=== PATIENT | male | born 1955 | race Caucasian/White ===

== ENCOUNTER → 2022-12-04 09:42 | Outpatient (BNVA) | payer MEDICARE, SELFPAY | PROVIDERS: Referring Provider Dermatology; Visit Provider Student in an Organized Health Care Education/Training Program | DX: M17.11 Unilateral primary osteoarthritis, right knee; Z98.890 Other specified postprocedural states; G43.909 Migraine, unspecified, not intractable, without status migrainosus | CPT/HCPCS: 20610; 73560; 73565; 97760; 99204; J3301; L1852 ==

== ENCOUNTER → 2022-12-04 09:49 | Outpatient (BNVA) | payer MEDICARE, SELFPAY | PROVIDERS: Referring Provider Dermatology; Visit Provider Student in an Organized Health Care Education/Training Program | DX: M17.11 Unilateral primary osteoarthritis, right knee; Z98.890 Other specified postprocedural states; G43.909 Migraine, unspecified, not intractable, without status migrainosus | CPT/HCPCS: 73560; 73565 ==

== ENCOUNTER → 2023-04-05 08:43 | Outpatient (BNVA) | payer MEDICARE, SELFPAY | PROVIDERS: PCP Family Medicine; Visit Provider Student in an Organized Health Care Education/Training Program | DX: M17.11 Unilateral primary osteoarthritis, right knee | CPT/HCPCS: 20610; 99213; J3301 ==

== ENCOUNTER → 2023-08-29 14:15 | Outpatient (BNVA) | payer MEDICARE, SELFPAY | PROVIDERS: PCP Family Medicine; Visit Provider Physician Assistant | DX: M17.11 Unilateral primary osteoarthritis, right knee (principal); Z01.818 Encounter for other preprocedural examination | CPT/HCPCS: 36415; 73560; 73565; 80053; 85025; 99214 ==

== ENCOUNTER → 2023-08-30 09:55 | Outpatient (BNVA) | payer MEDICARE, SELFPAY | PROVIDERS: PCP Family Medicine; Visit Provider Student in an Organized Health Care Education/Training Program | DX: Z01.818 Encounter for other preprocedural examination (principal) | CPT/HCPCS: 81000 ==

== ENCOUNTER → 2023-09-06 10:47 | Outpatient (BNVA) | payer MEDICARE, SELFPAY | PROVIDERS: PCP Family Medicine; Visit Provider Family Medicine | DX: Z01.818 Encounter for other preprocedural examination (principal) | CPT/HCPCS: 81003; 93005 ==

== ENCOUNTER 2023-09-09 12:39 | Outpatient (CLI) | payer MEDICARE, SELFPAY ==
--- NOTE | 2023-09-09 13:00 | CT_ITS ---
WS: [id number] CT RIGHT knee, noncontrast HISTORY: M17.11 - Unilateral primary osteoarthritis, right knee TECHNIQUE: Protocol for [facility] total knee replacement has been obtained. This includes axial imaging th rough the RIGHT hip, RIGHT knee and RIGHT ankle. DLP: 931.63 mGy.cm COMPARISON: Radiograph 08/29/2023 Pelvis: Mild narrowing at the SI joints. No osseous destruction. No free fluid. RIGHT knee: Moderate narrowing of the medial compartment. Cystic change in the fibular head and also along the tibial plateau. Osteophytic ridging. Moderate suprapatellar effusion. No destructive bone l esions. Negative RIGHT ankle. CT/CT knee RT [facility] [id number] IMPRESSION: CT imaging provided for [facility] robotic total knee replacement.
== END 2023-09-09 12:40 | disposition home or self-care (01) ==
LOC: RAD 12:39
PROVIDERS: PCP Family Medicine; Visit Provider Physician Assistant
DX: M17.11 Unilateral primary osteoarthritis, right knee (principal); M25.461 Effusion, right knee
CPT/HCPCS: 73700

== ENCOUNTER 2023-09-16 14:29 | Observation (INO) | payer MEDICARE, SELFPAY ==
[2023-09-16] VITALS (15 sets, daily range): BP systolic 106–170; BP diastolic 63–95; PULSE 71–89; RESP 15–20; TEMP 36.4–36.8; O2SAT 92–97; BMI 34.7; BMI 37.5
[2023-09-16] MEDS: lactated ringers 500 ML IV (10:02)
[2023-09-16] MEDS: scopolamine 1.5 Patch 1 PATCH TRANSDERMA (10:03)
[2023-09-16] MEDS: ketorolac 30 mg/mL INJ IVP (10:04)
[2023-09-16] MEDS: acetaminophen 1,000 MG/100 ML PIGGYBACK 400 MG IV ×2 (10:04→17:27)
--- NOTE | 2023-09-16 10:35 | ANES.PREANE2 ---
Pre-Anesthetic Assessment Height/Weight: Height 1.75 m Weight 106.594 kg Temp Pulse Resp BP Pulse Ox O2 Del Method 98.0 F 78 16 160/95 97 Room Air 09/16/23 09:16 09/16/23 09:16 09/16/23 09:16 09/16/23 09:16 09/16/23 09:16 09/16/23 09:18 Operation Date: 09/16/23 10:55 Proposed Procedures p Eddie Robot Total Knee Arthroplasty(Right) - Tyrel Ramirez DO Last intake: Intake Last Liquid Date 09/15/23 Last Liquid Time 19:00 Last Solid Date 09/15/23 Last Solid Time 19:00 Social No tobacco Exam alert, oriented x 3, clear to auscultation bilaterally and regular rate & rhythm Airway Submandibular: within normal limits Cervical ROM: within normal limits Mallampati: Class I Pulmonary None reported CV/HEM Hypertension None reported Hepatic None reported GI None reported Metabolic None reported Anesthetic Plan ASA status: 2 Anesthesia: Eval. for regional block Other: sab risks discussed . Adductor canal block for post op pain control Medications/Allergies Home Medications Medication Instructions Recorded Confirmed Last Taken Type ascorbic acid (vitamin C) 1,000 mg 1 g PO DAILY 12/04/22 09/13/23 08/30/23 History capsule cholecalciferol (vitamin D3) 10 10 mcg PO DAILY 12/04/22 09/13/23 08/30/23 History mcg (400 unit) capsule docosahexaenoic acid (dha)-epa 120 1 cap PO DAILY 12/04/22 09/13/23 08/30/23 History mg-180 mg capsule (Fish Oil) gabapentin 600 mg tablet 600 mg PO DAILY 12/04/22 09/13/23 09/15/23 History ibuprofen 200 mg capsule 200 mg PO Q6H PRN Pain 12/04/22 09/13/23 Unknown History irbesartan 150 mg tablet 150 mg PO DAILY 12/04/22 09/13/23 09/15/23 History magnesium chloride 64 mg 64 mg PO DAILY 12/04/22 09/13/23 09/15/23 History (magnesium chloride) tablet multivitamin 1 tab PO DAILY 12/04/22 09/13/23 08/30/23 History battery tester field brace #1 ea 12/04/22 09/06/23 Unknown Rx zinc gluconate 100 mg tablet 100 mg PO DAILY 08/29/23 09/13/23 08/30/23 History tramadol 50 mg tablet 50 mg PO Q6H PRN pain 5 days #20 09/06/23 09/16/23 09/15/23 Rx tabs sulfamethoxazole 800 1 tab PO BID 5 days #10 tabs 09/09/23 09/13/23 09/13/23 Rx mg-trimethoprim 160 mg tablet (Bactrim DS) Allergies Allergy/AdvReac Type Severity Reaction Status Date / Time No Known Allergies Allergy Verified 09/06/23 11:02 [facility] Anesthesia Social History Smoking and tobacco/nicotine status: never used tobacco/nicotine Alcohol intake: never Data Anesthesia Cardiac Studies: No Data to Display
[2023-09-16] MEDS: midazolam 1 mg/mL INJ 2 mL 2 MG IVP (10:36)
[2023-09-16] MEDS: sodium chloride 0.9% 1,000 ML 30 ML IV (10:50)
--- NOTE | 2023-09-16 12:03 | W.PM.OPSUD ---
Surgery/Procedure H&P Update DATE OF PROCEDURE: September 16, 2023 DATE H&P PERFORMED: 08/29/23 H&P UPDATE INFORMATION: I have reviewed H&P completed within last 30 days, I have examined patient prior to procedure and No changes to prior documentation CHANGES TO PREVIOUS DOCUMENTATION: Talk with Dr Marte patient had a nonpathologic UA has no urinary symptoms has been empirically treated. He has negative esterases and negative nitrites. No new urinary symptoms at this point time stable and cleared from the preoperative clearance team to proceed with the OR today. All questions been answered at this time proceed with the OR for right knee removal of hardware and right total knee arthroplasty Eddie robotic assisted. PREOP DIAGNOSIS: Right knee painful hardware, right knee degenerative joint disease PRIMARY INDICATION FOR PROCEDURE: Right knee painful hardware, right knee degenerative joint disease PLANNED PROCEDURE: Operation Date: 09/16/23 10:55 Proposed Procedures p Eddie Robot Total Knee Arthroplasty(Right) - Tyrel Ramriez DO
[2023-09-16] MEDS: ceFAZolin 2,000 MG in sodium chloride 0.9% (plus) 50 ML 100 MG IV ×2 (12:06→20:11)
[2023-09-16] MEDS: tranexamic acid 1,000 mg/10mL SDV 1000 MG IV (12:30)
--- NOTE | 2023-09-16 12:35 | ANES.PROC ---
Anesthesia Procedures Procedure/Date: 09/16/23 Nerve Block ^: Nerve Block 1: Main Anesthesia: spinal anesthesia block Time Out Performed: Yes Consent: requested by attending/covering physician and from patient Nerve block location: adductor canal Anesthesia monitors applied: pulse oximetry, EKG, BP cuff and oxygen Nerve block position: supine Anesthetic Used: ropivicaine 0.5% Amount of anesthesia used (mL): 30 Ultrasound used to: visualize and ID femerol nerve Nerve Stimulator Used?: No Interscalene/Femoral BLK: 4 stimuplex 21 g needle used for position and inplane approach Injection: neg aspiration of heme Patient Tolerated Procedure: well and no complications Complications: none
[2023-09-16] MEDS: EPINEPHrine 1 mg/mL INJ XX (13:08)
[2023-09-16] MEDS: ketorolac 30 mg/mL INJ XX (13:08)
[2023-09-16] MEDS: tranexamic acid 1,000 mg/10mL SDV 1000 MG XX (13:08)
[2023-09-16] MEDS: ROPivacaine 0.2% Premix 100 mL 200 MG INTRA-ARTI (13:08)
--- NOTE | 2023-09-16 15:03 | P.OP_ITS ---
Operative Report Date of procedure: September 16, 2023 Surgeon: Tyrel Ramirez DO [employer] Supervisor: Dutch Ramirez PA-C: PA was necessary for assistance in this case with leg positioning retraction and protection of neurovascular structures as well as assistance in implantation wound closure and dressing application. Procedure: Preoperative diagnosis: Right knee degenerative joint disease Right knee orthopedic hardware Post-op diagnosis: Same Procedure done: Right total knee arthroplasty, cemented?robotic assisted Eddie Implants: Hailey triathlon size 6 femur CR cemented?Right Hailey triathlon size? 5 tibia universal baseplate cemented [place] triathlon asymmetric patella size 35 mm Hailey triathlon polyethylene 9mm Surgeon: Tyrel Ramirez DO Estimated blood?loss: 40 mL Tourniquet 73minutes IV fluids: 1200 mL Urine output: 150 mL Complications: None Condition: stable Disposition: floor Brief History: Patient is a 68-year-old female with with chronic?Right knee degenerative joint disease.? Patient has been worked up in the outpatient setting in the orthopedic office at this point time through shared decision making given? [id number] arthritis as well as failed conservative treatment, and pt would?like to proceed with a?Right total knee arthroplasty.? We talked about removal of orthopedic hardware that it has been in the knee given it could potentially be in the way of the hardware will consent for removal of orthopedic hardware unless ends up not being necessary. Through shared decision making elected to proceed with surgical intervention for?Right total knee arthroplasty.? We talked about continued conservative treatment and surgical intervention as far as the risk benefits complications alternatives surgical and nonsurgical treatment options.? At this point time understanding patient risks with surgery he agrees to proceed with surgical intervention.? Once again? risk with surgery include but are not?limited to make it better make it worse blood clot, heart attack, stroke, on the table, infection, injury to nerves or vessels, persistent pain, arthrofibrosis, implant failure.? Understanding these risks patient agrees to proceed with surgical intervention consent was obtained in the office.? All questions answered. Procedure: Patient was seen and evaluated in the preoperative holding area.? Consent was reviewed and signed with patient with plan for?Right total knee arthroplasty.? All questions answered.? Correct extremity marked.? Patient seen and evaluated by the anesthesia department and once cleared for surgery was taken back to the operative suite.? Patient was placed into a supine position on the OR table.? All bony prominences were well-padded.? Patient was appropriately secured to the bed.? Patient underwent anesthesia per the anesthesia department.? Patient received spinal anesthesia and? Drummond catheter was placed.? A nonsterile tourniquet was applied to the?Right thigh.? At this point in time a final timeout performed.? Patient received appropriate preoperative antibiotics and TXA. Next the?Right?lower extremity was then prepped and draped in standard orthopedic fashion. Esmarch tourniquet was used exsanguinate the?Right?lower extremity.? Tourniquet was insufflated to 250 mmHg. A standard anterior incision was made over midline of the knee.? Sharp scalpel excision through skin and subcutaneous tissue full-thickness skin flaps were made.? Fascia was elevated off of the extensor retinaculum was stable with medial parapatellar arthrotomy was then made.? The performed standard sequential releases..? Immediately on entry into the joint patient was found to have severe eburnated bone and tricompartmental arthritic changes noted.? With significant osteophyte formation.? Next the the patella was then stuffed and the knee was then flexed.?? At this point in time I then subsequently began exploration of the hardware which was 2 mac on the lateral aspect of the knee. I stuffed the patella laterally The knee in extension and then utilize digital dissection as well as Bovie electrocautery. I then utilized a small osteotome to try and scrape the lateral femoral condyle on the lateral aspect care not to injure the collateral ligament and spent roughly 15 minutes looking for the hardware and this was not blatantly visible and appeared to have some overgrowth of significant dense scar tissue/bone as result reviewing of the images by plan to proceed with the case and we inspected drilling my log holes for the femur if this will interfere with the mac. This point I made the decision I did not want to injure patient or cause more trauma necessary as these were not giving him any pain and his pain all stemmed immediately from his arthritis. Shane was placed superiorly around the anterior aspect of the femur this was freed of synovium and I subsequently then placed by 2 femur pins to establish my femur arrays for the Eddie robot.? These were then placed bicortically and? femur array was then appropriately secured with appropriate visualization.? Next attention was turned towards the tibial rays.? These were then drilled sequentially bicortically in parallel fashion and intraincisional.? I then placed my guide as well as my tibial array on in place.? This was appropriately secured and had excellent visualization with the [employer] robot.? Next the tibial checkpoint as well as femur checkpoint were then placed.? At this point time I then subsequently established my head center as well as my medial?lateral malleoli as well as my checkpoints.? Next utilizing standard [employer] technology I then mapped out the appropriate points and confirmation points around the femur as well as the tibia in standard fashion.? Once this was then done I then removed all osteophytes in preparation for dynamic testing.? All osteophytes were removed as well as I removed the ACL and the PCL was excised due to its significant tearing and degeneration noted.? At this point time the knee was brought into full extension and we performed our standard evaluation of our gap balancing stressing his?ligaments and extension as well as flexion appropriate adjustments were made to have appropriate gap balancing in both flexion and extension.? This plan for final counts.? We get a preoperative plan evaluating our implants which was a size 6 femur and a size 5 tibia.? Next we brought in the Eddie robot and sequentially made our femur cuts.? All excess bony cuts were then removed.? Finally we made our tibial cut.? Once this was done a standard PCL retractor was then placed into this position I excised the medial and?lateral meniscus.? The tibial cut was then subsequently removed all excess bony debris was removed.? I then utilized a?lamina rope silica machine operator and remove the posterior osteophytes.? At this point time sized the tibia and confirmed this was a size 5.? I utilized our blunt probe to establish rotation of tibial implant.? Once this was done I then placed my tibia size 5 trial in appropriate position and then subsequently placed tibial pins to hold this into place placed a size 9 mm poly as well as a size 6 femur which was appropriately impacted in place knee was then subsequently brought into extension. Trials were then assessed,? this was stable with varus valgus stress in extension as well as had symmetrical translation when brought into flexion demonstrating symmetrical gaps. I had excellent balance gaps in flexion and extension with varus and valgus stresses.? At this point I was satisfied with these implants these were then verified and opened on the back table size 5 tibia, size 6 femur,? size 9 mm polythickness.? We did confirm appropriate gap balancing and stresses as well as alignment utilizingHaim Morgan and were satisfied with this plan.? ?At this point time with my trials in place I then towel clip the patella everted this made appropriate measurements subsequently utilizing freehand technique performed by patellar resurfacing this was confirmed to be appropriate resection and subsequently sized to be a 35 mm asymmetric.? My drill peg guides were then clamped and appropriate position and appropriate position in the patella for appropriate tracking and parallel with the joint.? Pegs were drilled trial implant was placed and the knee was then subsequently ranged and found to have excellent patellar tracking.? Femur pegs were then drilled.? It was noted that the femur post laterally would not interfere with the mac and as result we elected to continue to proceed with implantation. All checkpoints as well as guidepins and arrays were removed and appropriate counts made.?Satisfied with our tibial placement rotation I then utilized the keel punch and prepped the tibia.? At this point time all of our trial implants were removed.? The wound bed? was thoroughly irrigated and dried and prepped for cementation.? Cement was mixed on the back table.? Once cement was ready this was then covered onto the tibia and the tibial baseplate was then impacted and all excess cement was removed.? Next the polyethylene was then impacted into place on the tibial baseplate.? Next cement was placed onto the femur as well as under the femur implants and impacted in to place and all excess cement was extruded and removed.? Knee was taken into full extension? to clear all excess cement was removed.? Warm saline was placed over the joint.? I then towel clip patella and dried for cementation. cemented the patella into place.? This was all clamped and the cement was allowed to cure.? Thorough irrigation performed with pulse?lavage.? I then placed my periarticular injection while the cement was curing.? Once cured the knee was taken through range of motion and had excellent stability and gaps were balanced in flexion and extension.? Tourniquet was then deflated. hemostasis satisfactory with electrocautery.? Next I then subsequently closed the capsule with Ethibond suture as well as a running strata fix suture.? Knee was then taken through range of motion 30 times.? Next the skin was then closed in?layered fashion of running stratifix sutures of deep and subcutenous tissue and skin.? ?closed in flexion and Prineo glue was then placed over the incision this allowed to cure.? Incision was covered with Silverlon, with ABDs soft roll and Tyler wrap.? Patient was then awakened from anesthesia and taken to PACU in stable condition. Disposition: Patient taken to PACU in stable condition will be admitted to the floor for pain control PT/OT weight-bear as tolerated?Right?lower extremity dressing changes as needed, DVT prophylaxis. Pain control. Patient will receive appropriate postoperative antibiotics. patient will be seen today by the internal medicine team for medical management.? Patient will follow up with the office in 2 weeks.? Patient understands agrees with current plan.? All questions answered.
--- NOTE | 2023-09-16 15:07 | XRR_ITS ---
PROCEDURE INFORMATION: Exam: XR Right Knee Exam date and time: 09/16/2023 3:20 PM Age: 68 years old Clinical indication: Device placement; Joint replacement hardware; Prior surgery; Surgery date: Post-operative (0-2 days); Surgery type: RT knee; Additional info: Status post right tka TECHNIQUE: Imaging protocol: Radiologic exam of the right knee. Views: 1 or 2 views. COMPARISON: CT knee RT [facility] [id number] 09/09/2023 1:01 PM FINDINGS: Bones/joints: Intact well-aligned total knee arthroplasty. No periprosthetic fracture. Soft tissues: Expected postoperative soft tissue gas. XR/XR knee RT 1-2V [id number] IMPRESSION: Intact well-aligned total knee arthroplasty.
--- NOTE | 2023-09-16 15:13 | P.BOP_ITS ---
Date of Procedure: [September 16, 2023] Surgeon: [Dr. Ramirez DO] [employer] Demonstrator(s): [Dutch Ramirez PA-C] Procedure(s) performed: [Right knee total arthroplasty with Eddie robotic assist] Findings of the procedure(s): [Right knee degenerative joint disease] Estimated blood loss: [40 mL] Specimen(s) removed: [femur, patella and tibia bone shavings] Post-operative diagnosis: [Right knee degenerative joint disease]
--- NOTE | 2023-09-16 15:16 | PM.PACU ---
PACU note Narrative: Patient is a 68-year-old male just underwent a right total knee arthroplasty. Pt transferred to PACU in stable condition. Dressing is dry. pt is awake and alert. Distal pulses are palpable toes are warm and well-perfused. Cap refill is normal and under 2 seconds. Pain is controlled. Unable to perform any further motor or sensation assessment to the leg due to residual spinal anesthetic. Exam: awake Disposition: admitted
[2023-09-16] MEDS: lactated ringers 1,000 ML 100 ML IV (16:09)
[2023-09-16] MEDS: cetylpyridinium Lozenge 1 EACH MUCOUS MEM (16:09)
--- NOTE | 2023-09-16 17:18 | PC.PT ---
Spoke with nursing at 1617. Patient had not regain full feeling and function to BLE following surgery. Advised to hold on completing evaluation until later.
--- NOTE | 2023-09-16 17:21 | P.CONIM_ITS ---
Providers/Reason For Consult Consulting Physician/Specialty*: Dr. Sosa/internal medicine Reason for Consult*: Medical comorbidities Attending Physician: Tyrel Ramirez DO Primary Care Provider: Thompson Mccallum History of Present Illness History of Present Illness Fox Clark is a 68 year old male with past medical history of hypertension underwent noted to right total knee arthroplasty today with orthopedic team. Medicine is consulted for high blood pressure. As per patient he takes irbesartan at home for high blood pressure. Does not check his blood pressures at home. Denies any chest pain or difficulty in breathing on walking around. Review of Systems General: Reports: 10 or more systems reviewed and unremarkable except in HPI and below Const: Denies: fever(s), chills, body aches, change in appetite, change in weight, malaise, night sweats, diaphoresis, change in sleep pattern, daytime sleepiness or snoring Eyes: Denies: change in vision, blurry vision, photophobia, eye discomfort or eye discharge ENMT: Denies: throat pain, enlarged tonsils, hoarseness, mouth pain, oral sores, dry mouth, tinnitus, nasal congestion or post nasal drip Card: Denies: chest pain, palpitations, irregular heart rhythm, edema, swelling of feet/ankles, lightheadedness, syncope, pre-syncope, dyspnea on exertion, orthopnea, leg pain with exertion or acrocyanosis Resp: Denies: dyspnea, productive cough, non-productive cough, wheezing, stridor, pain on inspiration, change in phlegm color, hemoptysis or chest congestion GI: Denies: abdominal pain, nausea, vomiting, hematemesis, coffee ground emesis, dysphagia, heartburn, diarrhea, constipation, bloating, GI cramping, change in bowel habits, pain on defecation, hematochezia or melena : Denies: flank pain, difficulty urinating, dysuria, urinary frequency, urinary urgency, urinary hesitancy, urinary dribbling, difficulty starting urination, change in urine stream, nocturia or hematuria Musc: Denies: neck pain, back pain, extremity pain, joint pain, joint swelling, joint redness, joint stiffness or limited range of motion Neuro: Denies: headache(s), numbness in extremities, weakness in extremities, sensory changes, lack of coordination, difficulty walking, frequent falls, dizziness, vertigo, confusion, Slurred speech present, difficulty communicating thoughts or seizure-like activity Psych: Denies: anxiety, depression, mood swings, panic attacks, hopelessness or irritability Endo: Denies: polyuria, polydipsia, tired all the time, cold intolerance, excessive sweating, flushing or heat intolerance Donis/Lymph: Denies: easy bruising or easy bleeding All/Imm: Denies: tongue swelling, facial swelling or acute wheezing Medications/Allergies Home Medications Medication Instructions Recorded Confirmed Last Taken Type ascorbic acid (vitamin C) 1,000 mg 1 g PO DAILY 12/04/22 09/13/23 08/30/23 History capsule cholecalciferol (vitamin D3) 10 10 mcg PO DAILY 12/04/22 09/13/23 08/30/23 History mcg (400 unit) capsule docosahexaenoic acid (dha)-epa 120 1 cap PO DAILY 12/04/22 09/13/23 08/30/23 History mg-180 mg capsule (Fish Oil) gabapentin 600 mg tablet 600 mg PO DAILY 12/04/22 09/13/23 09/15/23 History ibuprofen 200 mg capsule 200 mg PO Q6H PRN Pain 12/04/22 09/13/23 Unknown History irbesartan 150 mg tablet 150 mg PO DAILY 12/04/22 09/13/23 09/15/23 History magnesium chloride 64 mg 64 mg PO DAILY 12/04/22 09/13/23 09/15/23 History (magnesium chloride) tablet multivitamin 1 tab PO DAILY 12/04/22 09/13/23 08/30/23 History 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 ea 12/04/22 09/06/23 Unknown Rx zinc gluconate 100 mg tablet 100 mg PO DAILY 08/29/23 09/13/23 08/30/23 History tramadol 50 mg tablet 50 mg PO Q6H PRN pain 5 days #20 09/06/23 09/16/23 09/15/23 Rx tabs sulfamethoxazole 800 1 tab PO BID 5 days #10 tabs 09/09/23 09/13/23 09/13/23 Rx mg-trimethoprim 160 mg tablet (Bactrim DS) Allergies Allergy/AdvReac Type Severity Reaction Status Date / Time No Known Allergies Allergy Verified 09/06/23 11:02 Current Medications Generic Name Dose Route Start Last Admin Trade Name Freq PRN Reason Stop Dose Admin Lactated Ringer's 1,000 mls @ 100 mls/hr 09/16/23 15:35 09/16/23 16:09 Lactated Ringers IV 100 mls/hr .Q10H ASHLEY Administration PFSH Acute PFSH: Medical History (Updated 09/16/23 @ 17:23 by Zackary Sosa MD) Hypertension Migraines Surgical History (Updated 09/16/23 @ 17:23 by Zackary Sosa MD) History of bilateral inguinal hernia repair History of extraction of renal calculus History of lithotripsy History of arthroscopy of both knees H/O right knee surgery Social History Smoking and tobacco/nicotine status: never used tobacco/nicotine Alcohol intake: never Vitals/I&O/Wt Last Vital Signs Temp 97.8 F 09/16/23 16:30 Pulse 76 09/16/23 16:30 Resp 18 09/16/23 16:30 BP 115/63 09/16/23 16:30 Pulse Ox 95 09/16/23 16:30 O2 Del Method Room Air 09/16/23 16:30 O2 Flow Rate 95 09/16/23 15:35 09/16/23 09/16/23 09/16/23 06:59 14:59 22:59 Intake Total 1650 / 1650 250 / 1900 Output Total 190 / 190 Balance 1650 / 1650 60 / 1710 Weight last 48 hrs Weight 115.167 kg Weight 106.594 kg Physical Exam Narrative: General: No acute distress, AO x3 HEENT: PERRLA, pupils bilaterally equal and reactive Chest: Normal vesicular breath sounds, no added sounds, equal good air entry bilaterally CVS: S1-S2 regular, no murmurs, no tachycardia, no gallops, no rubs Abdomen: Soft, nontender, no organomegaly, bowel sounds present Neuro: No focal deficits, no facial deformity, AO x3, power 5/5 in all limbs Urinary Catheter Management: Drummond: Cath Placed During This Visit: yes Urinary Catheter Date of Insertion: 09/16/23 Urinary Catheter Time of Insertion: 12:40 A&P Assessment and plan (1) Encounter for postoperative care: Check CBC, CMP. Monitor hemoglobin. Antibiotic, pain medication, PT, anticoagulation as per primary team. (2) Hypertension: Goal blood pressure less than 140/90 mmHg. For now continue with home dose of antihypertensive. Uptitrate as for goal blood pressure. (3) S/P total knee arthroplasty: Plan Full code Cardiac diet Protonix OPD prophylaxis Anticoagulation as per primary team. Check CBC, CMP, HbA1c, lipid panel, vitamin B12, folate, TIBC levels. Thank you for involving us in care of Mr. Clark. Please call back with any questions. Consult Attestations Medical Necessity Statement: As per primary team. Diagnoses Encounter for postoperative care Z48.89 Hypertension I10 S/P total knee arthroplasty Z96.659
[2023-09-16] MEDS: docusate sodium 100 mg Capsule PO (17:26)
[2023-09-16] MEDS: iron polysaccharide complex 150 mg Capsule PO (17:26)
[2023-09-16] MEDS: chlorhexidine gluconate 0.12% Btl 473 mL 30 ML MUCOUS MEM ×2 (17:26→20:13)
[2023-09-16] MEDS: calcium carb-vit d 600mg/400unit 1 Tablet 1 EACH PO (17:26)
[2023-09-16] MEDS: mupirocin oint 22 gm 1 APPLIC NASAL (17:26)
[2023-09-16] MEDS: sennosides-docusate Tablet 2 TAB PO (17:26)
--- NOTE | 2023-09-16 18:08 | ANE.PACU2 ---
Inpatient post-anesthesia follow up: Vital signs: Temperature 97.8 F Pulse Rate 76 Respiratory Rate 18 Blood Pressure 115/63 Pulse Oximetry 95 Oxygen Delivery Me thod Room Air Oxygen Flow Rate 95 Fraction of Inspir ed Oxygen Hydration adequate: Yes Nausea and vomiting: No Pain level: controlled Mental status: Baseline Additional Comments: no apparent anesthetic complications noted
[2023-09-16 19:07] LABS: Iron 68 ug/dL (59-158); Percent Saturation 29.1 % (20-50); Thyroid Stimulating Hormone 0.94 uIU/mL (0.27-4.20); Total Iron Binding Capacity 233 mcg/dl; Unsaturated Iron Binding 165 ug/dL (112-347); Vitamin B12 613 pg/mL (232-1245)
[2023-09-16] MEDS: gabapentin 300 mg Capsule 600 MG PO (20:12)
[2023-09-16] MEDS: oxyCODONE 5 mg IR Tab/Cap PO (20:19)
[2023-09-16] MEDS: tranexamic acid 1,000 MG/100 ML PREMIX 600 MG IV (23:06)
[2023-09-17] VITALS (9 sets, daily range): BP systolic 149–187; BP diastolic 74–87; PULSE 74–95; RESP 16–20; TEMP 36.3–37.6; O2SAT 93–97
[2023-09-17] MEDS: acetaminophen 1,000 MG/100 ML PIGGYBACK 400 MG IV ×2 (02:05→10:41)
[2023-09-17] MEDS: lactated ringers 1,000 ML 100 ML IV (02:06)
[2023-09-17] MEDS: oxyCODONE 5 mg IR Tab/Cap PO ×3 (02:17→11:53)
[2023-09-17] MEDS: ceFAZolin 2,000 MG in sodium chloride 0.9% (plus) 50 ML 100 MG IV ×2 (05:30→11:04)
[2023-09-17 06:27] LABS: Basophils # 0.1 10^3/uL (0.0-0.1); Basophils % 0.4 %; Eosinophils # 0.2 10^3/uL (0.0-0.8); Eosinophils % 1.7 %; Hematocrit 41.7 % (37-53); Lymphocytes # 2.5 10^3/uL (0.8-4.8); Mean Corpuscular HGB Conc 34.1 g/dL (30-55); Mean Corpuscular Hemoglobin 31.8 pg (27-33); Mean Corpuscular Volume 93.3 fl (82-101); Mean Platelet Volume 11.9 fL (7.4-10.4); Monocytes # 0.9 10^3/uL (0.2-0.9); Monocytes % 7.7 %; Neutrophils # 8.27 10^3/uL (1.8-7.7); Neutrophils % 68.9 %; Nucleated Red Blood Cells % 0 %; Platelet Count 152 10^3/cmm (157-399); Red Blood Count 4.47 10^6/uL (3.85-5.65); Red Cell Distribution Width 12.8 % (12.1-15.1); White Blood Count 12.02 10^3/uL (3.29-11.43)
[2023-09-17 06:49] LABS: Blood Urea Nitrogen 14 mg/dL (8-23); Calcium 9.2 mg/dL (8.5-10.5); Carbon Dioxide 24 mmol/L (22-29); Cholesterol 177 mg/dL (0-200); Creatinine Clr Calc Pharmacy 98.9691; Glomerular Filtration Rate 84.2 mL/min (90-130); Glucose 111 mg/dL (65-115); HDL Cholesterol 29 mg/dL (60-100); LDL Cholesterol Calculated 113 mg/dL (50-129); Magnesium 1.7 mg/dL (1.7-2.3); Triglycerides 175 mg/dL (0-150); VLDL Cholestrol Calculation 35 mg/dL (0-30)
[2023-09-17 06:57] LABS: Anion Gap 12.1 (5-19); Chloride 105 mmol/L (98-107); Estmated Average Glucose 105; Hemoglobin A1C 5.3 % (4.0-6.0); Osmolality Calculated 285 mOsm/kg (285-295); Potassium 4.1 mmol/L (3.5-5.1); Sodium 137 mmol/L (136-145)
[2023-09-17] MEDS: ondansetron 2 mg/ML SDV 2 mL 4 MG IVP ×2 (07:56→11:51)
[2023-09-17] MEDS: ascorbic acid 500 mg Tablet 1000 MG PO (07:56)
[2023-09-17] MEDS: losartan 50 mg Tablet PO (07:56)
[2023-09-17] MEDS: apixaban 5 mg Tablet 2.5 MG PO (07:57)
[2023-09-17] MEDS: sennosides-docusate Tablet 2 TAB PO (07:57)
[2023-09-17] MEDS: calcium carb-vit d 600mg/400unit 1 Tablet 1 EACH PO (07:57)
[2023-09-17] MEDS: iron polysaccharide complex 150 mg Capsule PO (07:58)
[2023-09-17] MEDS: docusate sodium 100 mg Capsule PO (07:58)
[2023-09-17] MEDS: multivitamin therapeutic Tablet 1 TAB PO (07:58)
[2023-09-17] MEDS: mupirocin oint 22 gm 1 APPLIC NASAL (07:58)
[2023-09-17] MEDS: chlorhexidine gluconate 0.12% Btl 473 mL 30 ML MUCOUS MEM (07:58)
--- NOTE | 2023-09-17 10:09 | PC.CHAP ---
Pastoral Care Encounter/Spiritual Assessment Type of Contact [] Declined manager strategic marketing visit [] Patient/Family/Request visit [] Outpatient visit [] Follow-up visit [] Physician referral [] Code/Alert [] Routine visit [] Staff referral [] Actively dying [] Patient sleeping [] Family support [] [] Out of room [] Palliative care [] [x] Receiving care in room [] Pre-surgical visit [] Trauma [] Long length of stay [] ICU visit [] Other: Relational/Emotional Strength [] Patient feels connected with others/family/visitors/staff [] Distress [] Loneliness/isolation [] Abandonment Spirituality of Patient [] Person of Shavonne [] Attends Yazdanism of their Shavonne [] Believes in Prayer [] Reads Bible or Amish materials [] There are Spiritual issues to be addressed 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 [] Prayer [] Active listening [] Non-anxious presence [] Spiritual/emotional support [] Crisis/trauma care [] Spiritual counseling [] Bereavement support [] Provided bereavement packet [] Provided Bible/devotional materials [] Provided toy/stuffed animal, coloring book to patient or family member [] Provided Communion [] Anointing/Phenix [] Salvation [] Completed spiritual assessment [] Other: Impact on Illness or Injury [] Angry [] Fearful [] Anxious [] Often cries [] Exhaustion [] Unable to work [] Unable to attend anabaptist [] Unable to walk/stand [] Unable to read [] Unable to drive [] Unable to eat/drink [] Unable to sleep [] Unable to be with family [] Patient intubated [] Other: Summary Time spent with patient
--- NOTE | 2023-09-17 10:22 | PC.NURSE ---
Discharge instructions provided to pt. He is currently using his CPM and is to use it one more time today prior to discharge. NO questions or concerns at this time.
--- NOTE | 2023-09-17 11:15 | P.PN_ITS ---
Subjective 2 Subjective: No acute vents overnight. Patient working with physical therapy. Complaining of pain. Blood pressure slightly elevated overnight. Hemoglobin has remained stable. Vitals/I&O/Wt Last Vital Signs Temp 97.4 F L 09/17/23 10:20 Pulse 83 09/17/23 10:20 Resp 18 09/17/23 10:20 BP 177/74 09/17/23 10:20 Pulse Ox 95 09/17/23 10:20 O2 Del Method Room Air 09/17/23 07:24 O2 Flow Rate 95 09/16/23 15:35 09/16/23 09/17/23 09/17/23 22:59 06:59 14:59 Intake Total 1450 / 3100 1935 / 5035 360 / 360 Output Total 1240 / 1240 500 / 1740 Balance 210 / 1860 1435 / 3295 360 / 360 Weight last 48 hrs Weight 113.58 kg Weight 115.167 kg Weight 106.594 kg Physical Exam 2 Narrative: General: No acute distress, AO x3 HEENT: PERRLA, pupils bilaterally equal and reactive Chest: Normal vesicular breath sounds, no added sounds, equal good air entry bilaterally CVS: S1-S2 regular, no murmurs, no tachycardia, no gallops, no rubs Abdomen: Soft, nontender, no organomegaly, bowel sounds present Neuro: No focal deficits, no facial deformity, AO x3, power 5/5 in all limbs Urinary Catheter Management: Drummond: Cath Placed During This Visit: yes, but has since been removed by the nurse Reason for Continuing Indwelling Catheter: Perioperative Use in Selected Surgeries Urinary Catheter Date of Insertion: 09/16/23 Urinary Catheter Time of Insertion: 12:40 Date Urinary Catheter Removed: 09/17/23 Time Urinary Catheter Discontinued: 02:25 Data 09/17/23 05:33 09/17/23 05:33 A&P Assessment and plan (1) Encounter for postoperative care: Check CBC, CMP. Monitor hemoglobin. Antibiotic, pain medication, PT, anticoagulation as per primary team. (2) Hypertension: Goal blood pressure less than 140/90 mmHg. For now continue with home dose of antihypertensive. Uptitrate as for goal blood pressure. (3) S/P total knee arthroplasty: Plan Full code Cardiac diet Protonix OPD prophylaxis Anticoagulation as per primary team. Appreciate blood work. Blood pressures have been slightly elevated over the night. For now we will continue the same medication as before as blood pressure could be elevated because of pain. Advised patient to check blood pressure at home and maintain a blood pressure diary and follow-up with a primary care provider within next 2 weeks for further adjustment of antihypertensives as needed. Thank you for involving us in care of Mr. Clark. Please call back with any questions. Attestations 2 Medical Necessity Statement*: As per primary team Diagnoses Encounter for postoperative care Z48.89 Hypertension I10 S/P total knee arthroplasty Z96.659
--- NOTE | 2023-09-17 12:07 | PC.NURSE ---
Pt placed on CPM for second session of the day. Per Dr. Ramirez, may discharge after second CPM session.
--- NOTE | 2023-09-17 13:51 | PC.NURSE ---
here to greens picker pt. CPM removed. Pt to private vehicle via wheelchair with all belongings.
--- NOTE | 2023-09-17 16:52 | PM.DCS ---
Discharge Providers Date of Admission: 09/16/23 14:29 Date of Discharge: September 17, 2023 Attending Provider at Admission: Tyrel Ramirez DO Attending Provider at Discharge: Tyrel Ramirez DO Consults: Dr. Sosa?hospitalist Primary Care Provider: Thompson Mccallum Diagnoses at Discharge Discharge Diagnosis (1) Encounter for postoperative care: Status: Acute (2) Hypertension: Status: Acute (3) S/P total knee arthroplasty: Status: Acute Reason for Visit Reason for Visit: M17.11 Brief History: Status post right TKA Hospital Course Hospital Course Patient presented to the preoperative holding area with plan for right total knee arthroplasty after patient has been worked up in the outpatient setting for failed conservative treatment of [right] knee degenerative joint disease. Once cleared by anesthesia for surgery patient subsequently was taken back to the operative suite underwent anesthesia per anesthesia department and then subsequently underwent a [right] total knee arthroplasty. Procedure was performed without any complications patient was taken to PACU in stable condition patient recovered well in PACU and then was admitted to the floor postoperatively internal medicine was consulted and on board for medical management and assistance with care. Patient received appropriate PT/OT, postoperative antibiotics, postoperative TXA, pain control, postoperative DVT prophylaxis. Elevation and ice. Patient encouraged for knee range of motion allowed weightbearing as tolerated to the operative lower extremity. Dressing was changed as needed, labs were monitored daily. Patient recovered well postoperatively and worked well and progressed well with therapy. It was determined on postoperative day [1] the patient was stable for discharge from an orthopedic standpoint and medicine. Patient was comfortable with discharge and plan was discharged home. Patient received appropriate discharge instructions as well as pain medication and DVT prophylaxis postoperatively. Given appropriate instructions for dressing management. Patient will follow-up with Dr. Ramirez/orthopedics in the office in 2 weeks. All questions answered. Understand if there is any issues questions or concerns and contact the office. Physical Exam Narrative: Orthopedic examination right knee demonstrates dressings on in place clean dry and intact note subsequently taken down calf soft nontender compartments soft and compressible patient is able to wiggle toes, dorsiflex ankle sensations intact to light touch distally. Distal pulses palpable. Urinary Catheter Management: Drummond: Cath Placed During This Visit: yes, but has since been removed by the nurse Reason for Continuing Indwelling Catheter: Perioperative Use in Selected Surgeries Urinary Catheter Date of Insertion: 09/16/23 Urinary Catheter Time of Insertion: 12:40 Date Urinary Catheter Removed: 09/17/23 Time Urinary Catheter Discontinued: 02:25 Discharge Data Studies Completed and Pending Completed Studies During Hospitalization Category Date Time Status XR knee RT 1-2V [id number] Routine Exams 09/16/23 15:07 Completed Radiology Impressions Knee X-Ray 09/16/23 15:07 IMPRESSION: Intact well-aligned total knee arthroplasty. Laboratory Results WBC 12.02 10^3/uL (3.29-11.43) H 09/17/23 05:33 RBC 4.47 10^6/uL (3.85-5.65) 09/17/23 05:33 Hgb 14.20 g/dL (11.27-16.99) 09/17/23 05:33 Hct 41.7 % (37-53) 09/17/23 05:33 MCV 93.3 fl (82-101) 09/17/23 05:33 MCH 31.8 pg (27-33) 09/17/23 05:33 MCHC 34.1 g/dL (30-55) 09/17/23 05:33 RDW 12.8 % (12.1-15.1) 09/17/23 05:33 Plt Count 152 10^3/cmm (157-399) L 09/17/23 05:33 MPV 11.9 fL (7.4-10.4) H 09/17/23 05:33 Neut % (Auto) 68.9 % 09/17/23 05:33 Lymph % (Auto) 21.0 % 09/17/23 05:33 O'Brien % (Auto) 7.7 % 09/17/23 05:33 Eos % (Auto) 1.7 % 09/17/23 05:33 Baso % (Auto) 0.4 % 09/17/23 05:33 Neut # (Auto) 8.27 10^3/uL (1.8-7.7) H 09/17/23 05:33 Lymph # (Auto) 2.5 10^3/uL (0.8-4.8) 09/17/23 05:33 O'Brien # (Auto) 0.9 10^3/uL (0.2-0.9) 09/17/23 05:33 Eos # (Auto) 0.2 10^3/uL (0.0-0.8) 09/17/23 05:33 Baso # (Auto) 0.1 10^3/uL (0.0-0.1) 09/17/23 05:33 Nucleated RBC % (auto) 0 % 09/17/23 05:33 Nucleated RBCs # 0.0 /100WBC 09/17/23 05:33 Sodium 137 mmol/L (136-145) 09/17/23 05:33 Potassium 4.1 mmol/L (3.5-5.1) 09/17/23 05:33 Chloride 105 mmol/L (98-107) 09/17/23 05:33 Carbon Dioxide 24 mmol/L (22-29) 09/17/23 05:33 Anion Gap 12.1 (5-19) 09/17/23 05:33 BUN 14 mg/dL (8-23) 09/17/23 05:33 Creatinine 0.9 mg/dL (0.7-1.2) 09/17/23 05:33 GFR Calculation 84.2 mL/min (90-130) L 09/17/23 05:33 Glucose 111 mg/dL (65-115) 09/17/23 05:33 Estimat Average Glucose 105 09/17/23 05:33 Hemoglobin A1c 5.3 % (4.0-6.0) 09/17/23 05:33 Calculated Osmolality 285 mOsm/kg (285-295) 09/17/23 05:33 Calcium 9.2 mg/dL (8.5-10.5) 09/17/23 05:33 Magnesium 1.7 mg/dL (1.7-2.3) 09/17/23 05:33 Iron 68 ug/dL (59-158) 09/16/23 18:18 TIBC 233 mcg/dl 09/16/23 18:18 % Saturation 29.1 % (20-50) 09/16/23 18:18 Unsat Iron Binding 165 ug/dL (112-347) 09/16/23 18:18 Triglycerides 175 mg/dL (0-150) H 09/17/23 05:33 Cholesterol 177 mg/dL (0-200) 09/17/23 05:33 LDL Cholesterol, Calc 113 mg/dL (50-129) 09/17/23 05:33 Total VLDL Cholesterol 35 mg/dL (0-30) H 09/17/23 05:33 HDL Cholesterol 29 mg/dL (60-100) L 09/17/23 05:33 Cholesterol/HDL Ratio 6.10 mg/dL (1.0-5.00) H 09/17/23 05:33 Vitamin B12 613 pg/mL (232-1245) 09/16/23 18:18 Folate 14.0 ng/mL (4.5-32.2) 09/17/23 05:33 TSH 0.94 uIU/mL (0.27-4.20) 09/16/23 18:18 Blood Type O Positive 09/16/23 09:35 Rho(D) Type Rh positive 09/16/23 09:35 Antibody Screen Negative 09/16/23 09:35 Vitals Last Vital Signs Temp 97.5 F L 09/17/23 11:45 Pulse 86 09/17/23 11:45 Resp 18 09/17/23 11:53 BP 187/87 09/17/23 11:45 Pulse Ox 93 09/17/23 11:45 O2 Del Method Room Air 09/17/23 11:45 O2 Flow Rate 95 09/16/23 15:35 Discharge Plan Discharge Patient Disposition: Home Health Service Condition: Stable Prescriptions: New Eliquis 2.5 mg tablet 2.5 mg PO BID 14 Days Qty: 28 0RF Continued irbesartan 150 mg tablet 150 mg PO DAILY gabapentin 600 mg tablet 600 mg PO DAILY Fish Oil 120-180 mg capsule 1 cap PO DAILY magnesium chloride 64 mg magnesium tablet 64 mg PO DAILY ascorbic acid (vitamin C) 1,000 mg capsule 1 g PO DAILY cholecalciferol (vitamin D3) 10 mcg (400 unit) capsule 10 mcg PO DAILY multivitamin Tablet 1 tab PO DAILY zinc gluconate 100 mg tablet 100 mg PO DAILY sulfamethoxazole-trimethoprim [Bactrim DS] 800-160 mg tablet 1 tab PO BID 5 Days Qty: 10 0RF Held ibuprofen 200 mg capsule 200 mg PO Q6H PRN (Reason: Pain) Hold Instructions: Resume on 10/01/23. 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 – [place] [Outside] Thompson Mccallum [Primary Care Provider] - 2 weeks Tyrel Ramirez DO [Physician] - 10/01/23 11:00 am Discharge Diet: Regular Discharge Activity: Limit activity as instructed Patient Instructions: Oxycodone, Rapid Release (By mouth), Ondansetron (By mouth), Apixaban (By mouth) (Eliquis), Total Knee Replacement (GEN), Joint Replacement Stoplight, Opioid Safety Activity Restrictions/Additional Instructions: Orthopedic discharge instructions Remove Tyler wrap after 3 days, may shower if you cover the knee dressing and make sure does not get wet keep incisions clean dry and intact, leave Silverlon bandage dressings on in place for 7 days after that may remove dressing and rinse incisions with warm soapy water pat dry and redress with a dry dressing. Patient may weight-bear as tolerate to the operative extremity Utilize crutches as needed Encourage knee range of motion as tolerated Ice and elevate as needed for pain and swelling Take pain medication as prescribed Take antinausea medication as needed The prescribed Eliquis twice daily for the next 14 days for blood clot prevention May supplement for pain with Tylenol [id number] as needed, do not take more than 3000 mg Tylenol a day No baths or soaks Follow-up in the orthopedic office in 2 weeks Contact the office for any questions or concerns Advised patient to check blood pressure at home and maintain a blood pressure diary and follow-up with a primary care provider within next 2 weeks for further adjustment of antihypertensives as needed. Discharge Attestations Time Spent in Discharge Care*: less than 30 min Quality Metrics Clinical Quality Measures [ No reported AMI, CVA or VTE this stay] Coding Level of Care Code Acute Code for Chg Fwd Diagnoses Encounter for postoperative care Z48.89 Hypertension I10 S/P total knee arthroplasty Z96.659
== END 2023-09-17 13:52 | disposition home health service (06) ==
LOC: MEDSURG 14:29
PROVIDERS: Student in an Organized Health Care Education/Training Program; Admitting Provider Student in an Organized Health Care Education/Training Program; PCP Family Medicine; Visit Provider Student in an Organized Health Care Education/Training Program
PROC: 8E0Y0CZ Robotic Assisted Procedure of Lower Extremity, Open Approach (ICD-10-PCS; CPT 27447; principal; 2023-09-16 10:45)
DX: M17.11 Unilateral primary osteoarthritis, right knee (principal); I10 Essential (primary) hypertension
CPT/HCPCS: 20985; 27447; 36415; 51702; 73560; 80048; 80061; 82607; 82746; 83036; 83540; 83550; 83735; 84443; 85025; 86850; 86900; 97110; 97162; 97165; C1776; G0378; J0131; J0171; J0690; J1885; J2250; J2405; J2704; J2795; J7030; J7120

== ENCOUNTER → 2023-10-01 10:48 | Outpatient (BNVA) | payer MEDICARE, SELFPAY | PROVIDERS: PCP Family Medicine; Visit Provider Physician Assistant | DX: Z96.651 Presence of right artificial knee joint (principal) | CPT/HCPCS: 73560; 73565; 99024 ==

== ENCOUNTER → 2023-11-12 10:27 | Outpatient (BNVA) | payer MEDICARE, SELFPAY | PROVIDERS: PCP Family Medicine; Visit Provider Physician Assistant | DX: Z96.651 Presence of right artificial knee joint (principal) | CPT/HCPCS: 73562; 99024 ==

== ENCOUNTER → 2024-01-07 09:20 | Outpatient (BNVA) | payer MEDICARE, SELFPAY | PROVIDERS: PCP Family Medicine; Visit Provider Student in an Organized Health Care Education/Training Program | DX: Z96.651 Presence of right artificial knee joint (principal) | CPT/HCPCS: 73560; 73565; 99213 ==